=== PATIENT | male | born 1950 | race Two or more races ===

== ENCOUNTER 2024-03-18 09:35 | Outpatient (AMB) | payer OTHER, MEDICAID, SELFPAY ==
[2024-03-18 10:18] VITALS: BP 178/85; PULSE 60; RESP 18; TEMP 36.2; O2SAT 97; BMI 25.1
--- NOTE | 2024-03-18 10:18 | PD.ORTHCLVIS ---
Vital signs 03/18/24 10:18 Height 1.7 m Height Method Stated Weight 72.83 kg Weight Measurement Method Standing Scale BMI 25.1 BP 178/85 H Blood Pressure Source Automatic Cuff Blood Pressure Location Right Upper Arm Position Sitting Respiration 18 Pulse 60 Pulse Source Monitor Temp 97.2 F Temp Source Temporal Artery Scan Pulse Oximetry (%) 97 Oxygen Delivery Method Room Air Med/Allergies Allergies & Medications Allergies NKA* Allergy (Uncoded 03/18/24 10:19) Medication Reconciliation Amlodipine Besylate 5 mg PO QDAY ##90 07/12/16 [History Confirmed 03/18/24] Diclofenac Sodium 100 mg PO QDAY ##90 07/12/16 [History Confirmed 03/18/24] Metformin Hcl 1,000 mg PO BID ##180 07/12/16 [History Confirmed 03/18/24] docusate sodium 100 mg capsule 100 mg PO BID ##60 07/12/16 [History Confirmed 03/18/24] hydrochlorothiazide 25 mg tablet 25 mg PO QDAY ##90 07/12/16 [History Confirmed 03/18/24] linagliptin 5 mg tablet (Tradjenta) 5 mg PO QDAY ##90 07/12/16 [History Confirmed 03/18/24] lisinopril 40 mg tablet 40 mg PO QDAY ##90 07/12/16 [History Confirmed 03/18/24] lovastatin 10 mg tablet 10 mg PO QDAY ##90 07/12/16 [History Confirmed 03/18/24] sitagliptin phosphate 100 mg tablet (Januvia) 1 tab PO QDAY ##30 02/19/17 [History Confirmed 03/18/24] Subjective Visit Visit for: new patient and knee (LEFT) Immunization / Flu Flu Vaccine in the Last 12 Months: Yes Flu Vaccine Exclusion Criteria: Already Received History of Present Illness Chief complaint: LEFT KNEE PAIN Con is a pleasant 73-year-old male with a longstanding history of left knee pain. Is been ongoing for more than 1 year. He has tried braces. He has not had any anti-inflammatories or injections. He has tried tramadol. The pain has significantly worsened in the last 2 months. Pain Pain level (0-10): 6 Pain duration: ON AND OFF Pain location: inside (medial) Pain quality: sharp, dull and aching Pain timing: night Associated signs & symptoms: weakness and stiffness Ambulatory data Ambulatory device: none Treatments Improvement with previous injections: No Improvement with PT: No Improvement with NSAIDS: no Review of Systems Review of Systems: All systems negative unless otherwise noted in HPI. Exam Exam Patient is in no acute distress and is cooperative with the examination today. Breathing is nonlabored. In no respiratory distress. Bilateral extremities were evaluated and demonstrates sensation intact to light touch. Palpable pedal pulses are present. No significant edema is present. Bilateral hips were examined. The patient has no pain with log roll of the hips. Internal rotation to 30 degrees and external rotation to 30 degrees is painless. Negative FADIR. The left knee was examined. The left knee is in [varus] alignment. Range of motion from [0-115] degrees. Knee is stable to varus and valgus as well as AP translation with <5mm. Patient has a [negative] McMurrays. There is [no] pain with patellofemoral compression and [no] crepitus noted. The knee is [tender] to palpation [medially]. The right knee was also examined. The right knee is in [varus] alignment. Range of motion from [0-120] degrees. Knee is stable to varus and valgus as well as AP translation with <5mm. Patient has a [negative] McMurrays. There is [no] pain with patellofemoral compression and [no] crepitus noted. The knee is [tender] to palpation [medially]. I reviewed left knee x-rays from [facility] imaging. These are nonweightbearing. This demonstrates significant joint space loss in the medial compartment. There is osteophytes and varus deformity. Assessment and Plan Problem List (1) Arthritis of left knee: Status: Acute Plan: Patient is a pleasant 73-year-old male with left knee pain and left knee arthritis. We discussed nonoperative and operative options. We would like to get weightbearing x-rays to better assess his knee. He can see us back in approximately 1 to 2 weeks to go over the results and after we get authorization for injections. We will likely do injections at the next visit Advanced Care Planning Discussion Advance care planning discussed with:: patient Office Procedures GNS Level of Care Nursing/Assessment Patient Status: Initial/New Patient Nursing Assessment/Reassesment: Medication Reconciliation, Update PMH in EMR and Vital Signs Coordination of Care: Complex Care and Chronic Disease 1-5, Education Complex Pt/Fam, Consent,records obtained, informed consent and Staff clarify orders Special Needs: Language special needs New Patient Charge New Patient Point Assignment: 1089 New Patient Point Charge: ACCOUNTING CLERK Level 3 ([id number]) Past Medical History Past Medical History Have you ever been diagnosed with any of the following: Cardiology Problems Hypercholesterolemia: Yes Hypertension: Yes Respiratory Problems Smoking: No Smoking Exposure: No Endocrine Problems Diabetes Mellitus Type 1: Yes
== END 2024-03-18 10:47 | disposition home or self-care (01) ==
PROVIDERS: PCP Family Medicine; Referring Provider Family Medicine; Supervising Provider Orthopaedic Surgery Adult Reconstructive Orthopaedic Surgery; Visit Provider Orthopaedic Surgery Adult Reconstructive Orthopaedic Surgery
DX: M17.12 Unilateral primary osteoarthritis, left knee (principal); M25.562 Pain in left knee; I10 Essential (primary) hypertension; E78.00 Pure hypercholesterolemia, unspecified
CPT/HCPCS: 99203; G0463

== ENCOUNTER 2024-03-27 10:35 | Outpatient (AMB) | payer OTHER, MEDICAID, SELFPAY ==
[2024-03-27 10:48] VITALS: BP 161/83; PULSE 70; RESP 18; TEMP 36.4; O2SAT 97; BMI 25.1
--- NOTE | 2024-03-27 10:48 | PD.ORTHCLVIS ---
Vital signs 03/27/24 10:48 Height 1.7 m Height Method Stated Weight 72.603 kg Weight Measurement Method Standing Scale BMI 25.1 BP 161/83 H Blood Pressure Source Automatic Cuff Blood Pressure Location Right Upper Arm Position Sitting Respiration 18 Pulse 70 Pulse Source Monitor Temp 97.6 F Temp Source Temporal Artery Scan Pulse Oximetry (%) 97 Oxygen Delivery Method Room Air Med/Allergies Allergies & Medications Allergies NKA* Allergy (Uncoded 03/27/24 10:49) Medication Reconciliation Amlodipine Besylate 5 mg PO QDAY ##90 07/12/16 [History Confirmed 03/27/24] Diclofenac Sodium 100 mg PO QDAY ##90 07/12/16 [History Confirmed 03/27/24] Metformin Hcl 1,000 mg PO BID ##180 07/12/16 [History Confirmed 03/27/24] docusate sodium 100 mg capsule 100 mg PO BID ##60 07/12/16 [History Confirmed 03/27/24] hydrochlorothiazide 25 mg tablet 25 mg PO QDAY ##90 07/12/16 [History Confirmed 03/27/24] linagliptin 5 mg tablet (Tradjenta) 5 mg PO QDAY ##90 07/12/16 [History Confirmed 03/27/24] lisinopril 40 mg tablet 40 mg PO QDAY ##90 07/12/16 [History Confirmed 03/27/24] lovastatin 10 mg tablet 10 mg PO QDAY ##90 07/12/16 [History Confirmed 03/27/24] sitagliptin phosphate 100 mg tablet (Januvia) 1 tab PO QDAY ##30 02/19/17 [History Confirmed 03/27/24] meloxicam 7.5 mg tablet 7.5 mg PO QDAY #45 tabs 03/27/24 [Rx] Subjective Visit Visit for: follow up visit and knee Immunization / Flu Flu Vaccine in the Last 12 Months: Yes Flu Vaccine Exclusion Criteria: Already Received History of Present Illness Chief complaint: Left knee pain Con is a pleasant 73-year-old male with a longstanding history of left knee pain. Is been ongoing for more than 1 year. He has tried braces. He has not had any anti-inflammatories or injections. He has tried tramadol. The pain has significantly worsened in the last 2 months. Pain Pain level (0-10): 6 Pain duration: ON AND OFF Pain location: inside (medial) Pain quality: sharp, dull and aching Pain timing: night and increases with activity Associated signs & symptoms: weakness and stiffness Ambulatory data Ambulatory device: none Treatments Improvement with previous injections: No Improvement with PT: No Improvement with NSAIDS: no Review of Systems Review of Systems: All systems negative unless otherwise noted in HPI. Exam Exam Patient is in no acute distress and is cooperative with the examination today. Breathing is nonlabored. In no respiratory distress. Bilateral extremities were evaluated and demonstrates sensation intact to light touch. Palpable pedal pulses are present. No significant edema is present. Bilateral hips were examined. The patient has no pain with log roll of the hips. Internal rotation to 30 degrees and external rotation to 30 degrees is painless. Negative FADIR. The left knee was examined. The left knee is in [varus] alignment. Range of motion from [0-115] degrees. Knee is stable to varus and valgus as well as AP translation with <5mm. Patient has a [negative] McMurrays. There is [no] pain with patellofemoral compression and [no] crepitus noted. The knee is [tender] to palpation [medially]. The right knee was also examined. The right knee is in [varus] alignment. Range of motion from [0-120] degrees. Knee is stable to varus and valgus as well as AP translation with <5mm. Patient has a [negative] McMurrays. There is [no] pain with patellofemoral compression and [no] crepitus noted. The knee is [tender] to palpation [medially]. I reviewed left knee x-rays from [facility] imaging. X-rays demonstrate significant left knee arthritis with complete obliteration of the medial joint space. Osteophytes are present. Assessment and Plan Problem List (1) Arthritis of left knee: Status: Acute Plan: Patient is a pleasant 73-year-old male with left knee pain and left knee arthritis. We discussed nonoperative and operative options. WWe will try injections and anti-inflammatories. He does have significant arthritis and we will see how long this works. We discussed operative treatment should he not get good relief. Advanced Care Planning Discussion Advance care planning discussed with:: patient Office Procedures GNS Level of Care Nursing/Assessment Patient Status: Established Patient Nursing Assessment/Reassesment: Medication Reconciliation, Update PMH in EMR and Vital Signs Coordination of Care: Complex Care and Chronic Disease 1-5, Education Complex Pt/Fam, Consent,records obtained, informed consent, Results/Orders obtained and Staff clarify orders Special Needs: Language special needs Established Patient Charge Established Patient Point Assignment: 95 Established Patient Point Charge: EP Level 3 (80-115) Surgical Proc/IM SQ injection Major Surgical Procedure: Yes (LEFT KNEE INJECTION) Medication Given Medication Given Medication Given: Yes Documented Dose Given: 4 Route: Infiitration Medication Given Medication Given Medication Given: Yes Documented Dose Given: 1 Route: Infiitration Office Meds Xylocaine 10 mg/mL (1 %) injection solution Performing Provider: Yusuf Quintana MD Performing Location: [facility] Administered by: Yusuf Quintana MD on 03/27/24 11:05 Dose Route Admin Location Dispensed Lot Number Expiration Date [facility] Home Extension Agent 20 mL Infiltration 20 mL [id number] 01/24/27 51148-682-90 [facility] triamcinolone acetonide 40 mg/mL suspension for injection Performing Provider: Yusuf Quintana MD Performing Location: [facility] Administered by: Yusuf Quintana MD on 03/27/24 11:05 Dose Route Admin Location Dispensed Lot Number Expiration Date [facility] Home Extension Agent 40 mg Infiltration 1 mL [id number] 12/24/25 [address]-8 [employer] Past Medical History Past Medical History Have you ever been diagnosed with any of the following: Cardiology Problems Hypercholesterolemia: Yes Hypertension: Yes Respiratory Problems Smoking: No Smoking Exposure: No Endocrine Problems Diabetes Mellitus Type 1: Yes
== END 2024-03-27 11:01 | disposition home or self-care (01) ==
LOC: HODSRG 10:35
PROVIDERS: PCP Family Medicine; Referring Provider Family Medicine; Supervising Provider Orthopaedic Surgery Adult Reconstructive Orthopaedic Surgery; Visit Provider Orthopaedic Surgery Adult Reconstructive Orthopaedic Surgery
DX: M17.12 Unilateral primary osteoarthritis, left knee (principal); E78.00 Pure hypercholesterolemia, unspecified; I10 Essential (primary) hypertension; M25.562 Pain in left knee
CPT/HCPCS: 20610; 99213; J3301; J3490; G0463

== ENCOUNTER 2024-07-01 09:35 | Outpatient (AMB) | payer OTHER, MEDICAID, SELFPAY ==
[2024-07-01 11:03] VITALS: BP 157/75; PULSE 68; RESP 18; TEMP 35.8; O2SAT 97; BMI 25.2
--- NOTE | 2024-07-01 11:03 | ORTHONT_ITS ---
Vital signs 07/01/24 11:03 Height 1.7 m Height Method Stated Weight 73.057 kg Weight Measurement Method Standing Scale BMI 25.2 BP 157/75 H Blood Pressure Source Automatic Cuff Blood Pressure Location Left Upper Arm Position Sitting Respiration 18 Pulse 68 Pulse Source Monitor Temp 96.5 F L Temp Source Temporal Artery Scan Pulse Oximetry (%) 97 Oxygen Delivery Method Room Air Med/Allergies Allergies & Medications Allergies NKA* Allergy (Uncoded 07/01/24 11:04) Medication Reconciliation Amlodipine Besylate 5 mg PO QDAY ##90 07/12/16 [History Confirmed 07/01/24] Diclofenac Sodium 100 mg PO QDAY ##90 07/12/16 [History Confirmed 07/01/24] Metformin Hcl 1,000 mg PO BID ##180 07/12/16 [History Confirmed 07/01/24] docusate sodium 100 mg capsule 100 mg PO BID ##60 07/12/16 [History Confirmed 07/01/24] hydrochlorothiazide 25 mg tablet 25 mg PO QDAY ##90 07/12/16 [History Confirmed 07/01/24] linagliptin 5 mg tablet (Tradjenta) 5 mg PO QDAY ##90 07/12/16 [History Confirmed 07/01/24] lisinopril 40 mg tablet 40 mg PO QDAY ##90 07/12/16 [History Confirmed 07/01/24] lovastatin 10 mg tablet 10 mg PO QDAY ##90 07/12/16 [History Confirmed 07/01/24] sitagliptin phosphate 100 mg tablet (Januvia) 1 tab PO QDAY ##30 02/19/17 [History Confirmed 07/01/24] meloxicam 7.5 mg tablet 7.5 mg PO QDAY #45 tabs 03/27/24 [Rx Confirmed 07/01/24] Exam Exam Patient is in no acute distress and is cooperative with the examination today. Breathing is nonlabored. In no respiratory distress. Bilateral extremities were evaluated and demonstrates sensation intact to light touch. Palpable pedal pulses are present. No significant edema is present. Bilateral hips were examined. The patient has no pain with log roll of the hips. Internal rotation to 30 degrees and external rotation to 30 degrees is painless. Negative FADIR. The left knee was examined. The left knee is in [varus] alignment. Range of motion from [0-115] degrees. Knee is stable to varus and valgus as well as AP translation with <5mm. Patient has a [negative] McMurrays. There is [no] pain with patellofemoral compression and [no] crepitus noted. The knee is [tender] to palpation [medially]. The right knee was also examined. The right knee is in [varus] alignment. Range of motion from [0-120] degrees. Knee is stable to varus and valgus as well as AP translation with <5mm. Patient has a [negative] McMurrays. There is [no] pain with patellofemoral compression and [no] crepitus noted. The knee is [tender] to palpation [medially]. I reviewed left knee x-rays from [facility] imaging. X-rays demonstrate significant left knee arthritis with complete obliteration of the medial joint space. Osteophytes are present. Assessment and Plan Problem List (1) Arthritis of left knee: Status: Acute Plan: Patient is a pleasant 73-year-old male with left knee pain and left knee arthritis. He is doing well with conservative treatment. He has minimal pain. We offered physical therapy and he declined it today as he is doing well. Advanced Care Planning Discussion Advance care planning discussed with:: patient Office Procedures GNS Level of Care Nursing/Assessment Patient Status: Established Patient Nursing Assessment/Reassesment: Medication Reconciliation, Update PMH in EMR and Vital Signs Coordination of Care: Complex Care and Chronic Disease 1-5, Education Complex Pt/Fam, Consent,records obtained, informed consent, Results/Orders obtained and Staff clarify orders Established Patient Charge Established Patient Point Assignment: 95 Established Patient Point Charge: EP Level 3 (80-115) MA Intake Visit Data Collection New Patient or Established: Established Patient (seen at [facility] within 3 years) Reason for Visit:: 3 MONTH F/U LEFT KNEE INJECTION Seen by Clinical Staff ONLY (RN/MA): No Director Of Integrated Marketing Required: Yes PCP or OBGYN visit in last 3 months: Yes Hx Now: No Do You Feel Safe at Home: Yes Authorities Contacted: N/A Questionairres Past Medical History Past Medical History Have you ever been diagnosed with any of the following: Cardiology Problems Hypercholesterolemia: Yes Hypertension: Yes Respiratory Problems Smoking: No Smoking Exposure: No Endocrine Problems Diabetes Mellitus Type 1: Yes Subjective Visit Visit for: follow up visit and knee Immunization / Flu Flu Vaccine in the Last 12 Months: No Flu Vaccine Exclusion Criteria: No Exclusion Criteria History of Present Illness Chief complaint: left knee pain Con is a pleasant 73-year-old male with a longstanding history of left knee pain. This has been ongoing for more than 1 year. He has tried braces. He has not had any anti-inflammatories or injections. He has tried tramadol. The pain has significantly worsened in the last 2 months. Pain Pain level (0-10): 0 Pain duration: WITH CERTAIN MOVEMENTS Associated signs & symptoms: none Ambulatory data Ambulatory device: none Treatments Improvement with previous injections: No Improvement with PT: No Improvement with NSAIDS: no Review of Systems Review of Systems: All systems negative unless otherwise noted in HPI.
== END 2024-07-01 11:21 | disposition home or self-care (01) ==
LOC: HODSRG 09:35
PROVIDERS: PCP Family Medicine; Referring Provider Family Medicine; Supervising Provider Orthopaedic Surgery Adult Reconstructive Orthopaedic Surgery; Visit Provider Orthopaedic Surgery Adult Reconstructive Orthopaedic Surgery
DX: M17.12 Unilateral primary osteoarthritis, left knee (principal); M25.562 Pain in left knee; I10 Essential (primary) hypertension; E78.00 Pure hypercholesterolemia, unspecified
CPT/HCPCS: 99213; G0463

== ENCOUNTER → 2024-11-12 | Outpatient (CLI) | payer OTHER, MEDICAID, SELFPAY ==
[2024-11-12 08:43] LABS: Basophils % (Auto) 0 % (0-2.5); Eosinophils # (Auto) 0.2 Thou/mm3 (0.0-0.5); Eosinophils % (Auto) 2 % (0-10); Hematocrit 42.4 % (41.0-53.0); Hemoglobin 14.5 g/dL (13.5-16.0); Immature Granulocytes % (Auto) 0 % (0-0); Immature Granulocytes Auto 0.01 Thou/mm3 (0.00-0.00); Lymphocytes # (Auto) 1.9 Thou/mm3 (1.0-4.8); Lymphocytes % (Auto) 27 % (10-50); Mean Corpuscular HGB Conc 34.2 g/dl (31.0-37.0); Mean Corpuscular Hemoglobin 31.1 pg (25.0-35.0); Mean Corpuscular Volume 91 fL (80-100); Monocytes # (Auto) 0.6 Thou/mm3 (0.0-0.8); Monocytes % (Auto) 8 % (0-12); Neutrophils # (Auto) 4.3 Thou/mm3 (1.8-7.7); Neutrophils % (Auto) 62 % (37-80); Nucleated Red Blood Cell % 0 /100 WBC (0); Platelet Count 185 Thou/mm3 (140-440); RDW Standard Deviation 45.7 fL (35.1-43.9); Red Blood Count 4.66 Miln/mm3 (4.50-5.90)
[2024-11-12 08:50] LABS: Glucose Estimated Average 140 mg/dL (80-131); Hemoglobin A1C 6.5 % Hgb (4.8-6.0)
[2024-11-12 09:05] LABS: Creatinine MALB Rnd Ur 50 mg/dL (30-125); Microalbumin Creat Ratio 12 mg/gCrea (<30); Microalbumin, Random Urine 6 mg/L (0-300)
[2024-11-12 09:07] LABS: Prostate Specific Antigen 1.24 ng/mL (0-4.00)
[2024-11-12 09:14] LABS: Vitamin B12 809 pg/mL (211-911)
[2024-11-12 09:28] LABS: Alanine Aminotransferase 14 U/L (10-49); Albumin, Serum 4.6 gm/dL (3.4-4.8); Alkaline Phosphatase 51 U/L (46-116); Anion Gap 8 (7-16); Aspartate Amino Transferase 20 U/L (0-34); BUN/Creatinine Ratio 19 Ratio (12-20); Blood Urea Nitrogen 15 mg/dL (9-23); Calcium 9.2 mg/dL (8.3-10.6); Calcium (Corrected) 9.2 mg/dL (8.5-10.1); Carbon Dioxide 27.3 mMol/L (20.0-31.0); Cardiac Risk Estimate 3.1 RATIO (4.0-6.7); Chloride 106 mMol/L (98-107); Cholesterol 151 mg/dL (132-200); Creatinine (Component) 0.8 mg/dL (0.6-1.3); Globulin 2.3 gm/dL (2.3-3.5); Glucose 139 mg/dL (74-106); HDL Cholesterol 48 mg/dL (40-60); LDL Cholesterol,Calculated 76 mg/dL (0-130); Osmolality,Calculated 284 (275-295); Potassium 4.1 mMol/L (3.4-5.1); Sodium 141 mMol/L (136-145); Thyroid Stimulating Hormone 4.91 uIU/mL (0.55-4.78); Total Protein 6.9 gm/dL (5.7-8.2); Triglycerides 133 mg/dL (30-150); eGFR > 60 See Note
== END | disposition home or self-care (01) ==
PROVIDERS: PCP Nurse Practitioner Family; Referring Provider Nurse Practitioner Family; Visit Provider Nurse Practitioner Family
DX: Z13.29 Encounter for screening for other suspected endocrine disorder (principal); E11.9 Type 2 diabetes mellitus without complications; E78.5 Hyperlipidemia, unspecified; I10 Essential (primary) hypertension; N40.1 Benign prostatic hyperplasia with lower urinary tract symptoms
CPT/HCPCS: 36415; 80053; 80061; 82043; 82570; 82607; 83036; 84153; 84439; 84443; 85025

== ENCOUNTER 2024-12-05 08:53 | Outpatient (AMB) | payer OTHER, MEDICAID, SELFPAY ==
--- NOTE | 2024-12-05 09:19 | PD.ORTHCLVIS ---
Vital signs 12/05/24 09:25 Height 1.7 m Height Method Stated Weight 72.773 kg Weight Measurement Method Standing Scale BMI 25.2 BP 126/65 Blood Pressure Source Automatic Cuff Blood Pressure Location Left Upper Arm Position Sitting Respiration 16 Pulse 60 Pulse Source Monitor Temp 97.1 F Temp Source Temporal Artery Scan Pulse Oximetry (%) 95 Oxygen Delivery Method Room Air Med/Allergies Allergies & Medications Allergies NKA* Allergy (Uncoded 12/05/24 09:38) Medication Reconciliation Amlodipine Besylate 5 mg PO QDAY ##90 07/12/16 [History Confirmed 12/05/24] Diclofenac Sodium 100 mg PO QDAY ##90 07/12/16 [History Confirmed 12/05/24] Metformin Hcl 1,000 mg PO BID ##180 07/12/16 [History Confirmed 12/05/24] docusate sodium 100 mg capsule 100 mg PO BID ##60 07/12/16 [History Confirmed 12/05/24] hydrochlorothiazide 25 mg tablet 25 mg PO QDAY ##90 07/12/16 [History Confirmed 12/05/24] linagliptin 5 mg tablet (Tradjenta) 5 mg PO QDAY ##90 07/12/16 [History Confirmed 12/05/24] lisinopril 40 mg tablet 40 mg PO QDAY ##90 07/12/16 [History Confirmed 12/05/24] lovastatin 10 mg tablet 10 mg PO QDAY ##90 07/12/16 [History Confirmed 12/05/24] sitagliptin phosphate 100 mg tablet (Januvia) 1 tab PO QDAY ##30 02/19/17 [History Confirmed 12/05/24] meloxicam 7.5 mg tablet 7.5 mg PO QDAY #45 tabs 03/27/24 [Rx Confirmed 12/05/24] Exam Exam Patient is in no acute distress and is cooperative with the examination today. Breathing is nonlabored. In no respiratory distress. Bilateral extremities were evaluated and demonstrates sensation intact to light touch. Palpable pedal pulses are present. No significant edema is present. Bilateral hips were examined. The patient has no pain with log roll of the hips. Internal rotation to 30 degrees and external rotation to 30 degrees is painless. Negative FADIR. The left knee was examined. The left knee is in [varus] alignment. Range of motion from [0-115] degrees. Knee is stable to varus and valgus as well as AP translation with <5mm. Patient has a [negative] McMurrays. There is [no] pain with patellofemoral compression and [no] crepitus noted. The knee is [tender] to palpation [medially]. The right knee was also examined. The right knee is in [varus] alignment. Range of motion from [0-120] degrees. Knee is stable to varus and valgus as well as AP translation with <5mm. Patient has a [negative] McMurrays. There is [no] pain with patellofemoral compression and [no] crepitus noted. The knee is [tender] to palpation [medially]. I reviewed left knee x-rays from [facility] imaging. X-rays demonstrate significant left knee arthritis with complete obliteration of the medial joint space. Osteophytes are present. Assessment and Plan Problem List (1) Arthritis of left knee: Status: Acute Plan: Patient is a pleasant 73-year-old male with left knee pain and left knee arthritis. He would like another knee injection today. The last injection was 3 months. He does not want surgery at this time as his is about to get a knee replacement Recommend knee cortisone injection as patient would like to proceed with conservative treatment at this time. The risks and benefits of the procedure were reviewed with the patient and patient gave verbal consent to continue with the procedure. Procedure: performed by Dr. Quintana Using sterile technique the left knee was thoroughly prepped with alcohol, and approximately 1 cc of Kenalog 40 mg/mL and 4 cc of 1% lidocaine was injected without resistance into the medial tibial femoral joint space. The patient tolerated the procedure. Advanced Care Planning Discussion Advance care planning discussed with:: patient Office Procedures GNS Level of Care Nursing/Assessment Patient Status: Established Patient Nursing Assessment/Reassesment: Medication Reconciliation, Update PMH in EMR and Vital Signs Coordination of Care: Complex Care and Chronic Disease 1-5, Education Complex Pt/Fam, Consent,records obtained, informed consent and Staff clarify orders Special Needs: Language special needs Established Patient Charge Established Patient Point Assignment: 90 Established Patient Point Charge: EP Level 3 (80-115) Medication Given Medication Given Medication Given: Yes Documented Dose Given: 1 Route: Infiitration Medication Given Medication Given Medication Given: Yes Documented Dose Given: 1 Route: Infiitration Office Meds Xylocaine 10 mg/mL (1 %) injection solution Performing Provider: Yusuf Quintana MD Performing Location: [facility] Administered by: Yusuf Quintana MD on 12/05/24 09:30 Dose Route Admin Location Dispensed Lot Number Expiration Date [facility] Auger Operator 40 mL Infiltration KNEE 40 mL [id number] 02/25/28 34410-739-77 [facility] triamcinolone acetonide 40 mg/mL suspension for injection Performing Provider: Yusuf Quintana MD Performing Location: [facility] Administered by: Yusuf Quintana MD on 12/05/24 09:30 Dose Route Admin Location Dispensed Lot Number Expiration Date [facility] Auger Operator 80 mg intra-articular KNEE 2 mL [id number] 06/27/26 27829-154-70 MARLINE THAKKAR MA Intake Visit Data Collection New Patient or Established: Established Patient (seen at [facility] within 3 years) Reason for Visit:: LEFT KNEE INJECTION Seen by Clinical Staff ONLY (RN/MA): No Director Of Acquisitions Required: Yes PCP or OBGYN visit in last 3 months: Yes Hx Now: No Do You Feel Safe at Home: Yes Authorities Contacted: N/A Questionairres Past Medical History Past Medical History Have you ever been diagnosed with any of the following: Neurological Problems Cerebrovascular Accident (CVA): No Transient Ischemic Attacks (TIA): No Dementia: No Alzheimer's Disease: No Parkinson's Disease: No Brain Tumor: No Meningitis: No Seizures: No Epilepsy: No Multiple Sclerosis: No Cerebral Palsy: No Amyotrophic Lateral Sclerosis (ALS/María Elena Gehrig's): No Guillain-[place] Syndrome: No Spina Bifida: No Paralysis: No Peripheral Neuropathy: No Wilson's Palsy: No Subdural Hematoma: No Migraine: No Head Trauma: No Spinal Cord Injury: No Traumatic Brain Injury: No Cardiology Problems Myocardial Infarction: No Cardiac Arrhythmia: No Atrial Fibrillation: No Angina: No Heart Murmur: No Coronary Artery Disease: No Atherosclerotic Heart Disease: No Peripheral Vascular Disease: No Hypercholesterolemia: Yes Aneurysm: No Congestive Heart Failure: No Congenital Heart Disease: No Valvular Heart Disease: No Rheumatic Fever: No Cardiomyopathy: No Edema: No Pericarditis: No Cellulitis: No Deep Vein Thrombosis: No Hypertension: Yes Hypotension: No Varicose Veins: No Respiratory Problems Chronic Obstructive Pulmonary Disease (COPD): No Asthma: No Bronchitis: No Emphysema: No Pneumonia: No Pulmonary Fibrosis: No Tuberculosis: No Pulmonary Embolism: No Pulmonary Edema: No Sleep Apnea: No CPAP Dependent: No Respiratory Aspiration: No Dyspnea: No Orthopnea: No Hx Cough: No Cough: No Wheezing: No Chest Deformities: No Smoking: No Smoking Cessation Counseling: No Smoking Exposure: No Tobacco Use: No Clubbing: No Exposure to Respiratory Irritants: No Intubation: No Stomache/Intestinal Problems Liver Cancer: No Hepatitis: No Cirrhosis: No Pancreatic Cancer: No Pancreatitis: No Celiac Disease: No Gall Bladder Disease: No Gastrointestinal Bleed: No Esophageal Varices: No Barrientos's Esophagus: No Colitis: No Ulcerative Colitis: No Diverticulitis: No Diverticulosis: No Ulcer: No Colorectal Cancer: No Irritable Bowel: No Crohn's Disease: No Obstructive Bowel: No Hiatal Hernia: No Hemorrhoids: No Gastroesophageal Reflux Disease: No Polyps: No Obesity: No Genital/Urinary Problems Chronic Kidney Disease: No Renal Disease: No Kidney Stones: No Polycystic Kidney Disease: No Neurogenic Bladder: No Inguinal Hernia: No Dialysis: No Prostate Cancer: No Benign Prostatic Hyperplasia: No Reproductive Problems Breast Cancer: No Fibroids: No Genital Herpes: No Gonorrhea: No Syphilis: No Testicular Cancer: No Musculoskeletal Problems Muscular Dystrophy: No Myasthenia Gravis: No Marfan's Syndrome: No Bone Cancer: No Arthritis: No Rheumatoid Arthritis: No Osteoporosis: No Degenerative Disk Disease: No Gout: No Scoliosis: No Carpal Tunnel Syndrome: No Fibromyalgia: No Fractures: No Degenerative Joint Disease: No Osteomyelitis: No Poliovirus: No Head,Eye,Nose,Throat Problems Cataracts: No Glaucoma: No Blind: No Retinal Detachment: No Macular Degeneration: No Chronic Ear Infections: No Deafness: No Eye Prosthesis: No Endocrine Problems Diabetes Mellitus Type 1: Yes Diabetes Mellitus Type 2: No Hypoglycemia: No Shante's Syndrome: No Shoshone's Disease: No Hyperthyroidism: No Hypothyroidism: No Thyroid Cancer: No Parathyroid Disease: No Pituitary Disease: No Systemic Lupus Erythematosus: No Syndrome of Inappropriate Antidiuretic Hormone: No Adrenal Disease: No Graves' Disease: No Blood Problems Anemia: No Leukemia: No Hemophilia: No Thalassemia: No Sickle Cell Disease: No Clotting Problems: No Psychologic Problems Schizophrenia: No Recreational Drug Use: No Bipolar Disorder: No Depression: No Anxiety: No Behavior Problems: No Self-Mutilation: No Attention Deficit Disorder: No Attention Deficit Hyperactivity Disorder: No Depression: No Post Traumatic Stress Disorder: No Eating Disorder: No Other Problems Hospitalization: No Autoimmune Disease: No Down Syndrome: No Autism: No Developmental Delay: No Cosmetic Surgery: No Shingles: No Falls: No Blood Transfusions: No Blood Transfusion Reaction: No Anesthesia Reactions: No Organ Transplant: No Chemotherapy: No Radiation Therapy: No Hyperbaric Therapy: No MRSA: No VRSA: No Vancomycin-Resistant Enterococci: No Human Immunodeficiency Virus (HIV): No Chicken Pox: No Measles: No Mumps: No Rubella ([place] Measles): No Pertussis: No Klebsiella Pneumoniae Carbapenemase Producing Bacteria: No Clostridium Difficile: No Hepatitis A: No Hepatitis B: No Hepatitis C: No Communicable Disease: No Cancer: No Lung Cancer: No Surgical History Angioplasty: No Appendectomy: No Bariatric Surgery: No Breast Surgery: No Cancer Surgery: No Carotid Endarterectomy: No Cholecystectomy: No Colectomy: No Colostomy: No Coronary Artery Bypass Graft: No Valve Replacement: No Herniorrhaphy: No Total Hip Replacement: No Total Knee Replacement: No Pacemaker: No Sinus Surgery: No Splenectomy: No Thyroidectomy: No Ureter Stent: No Subjective Visit Visit for: follow up visit and knee Immunization / Flu Flu Vaccine in the Last 12 Months: No Flu Vaccine Exclusion Criteria: No Exclusion Criteria History of Present Illness Chief complaint: left knee pain Con is a pleasant 73-year-old male with a longstanding history of left knee pain. This has been ongoing for more than 1 year. He has tried braces. He has not had any anti-inflammatories or injections. He has tried tramadol. The pain has significantly worsened in the last 2 months. The last injection worked for longer than 3 months and he would like another one today Pain Pain level (0-10): 0 Pain duration: WITH CERTAIN MOVEMENTS Pain location: inside (medial) Associated signs & symptoms: weakness Ambulatory data Ambulatory device: none Treatments Improvement with previous injections: No Improvement with PT: No Improvement with NSAIDS: no Review of Systems Review of Systems: All systems negative unless otherwise noted in HPI.
[2024-12-05 09:25] VITALS: BP 126/65; PULSE 60; RESP 16; TEMP 36.2; O2SAT 95; BMI 25.2
== END 2024-12-05 09:42 | disposition home or self-care (01) ==
PROVIDERS: PCP Nurse Practitioner Family; Referring Provider Nurse Practitioner Family; Supervising Provider Orthopaedic Surgery Adult Reconstructive Orthopaedic Surgery; Visit Provider Orthopaedic Surgery Adult Reconstructive Orthopaedic Surgery
DX: M17.12 Unilateral primary osteoarthritis, left knee (principal); M25.562 Pain in left knee; I10 Essential (primary) hypertension; E78.00 Pure hypercholesterolemia, unspecified; E10.9 Type 1 diabetes mellitus without complications
CPT/HCPCS: 20610; 99213; J3301; J3490; G0463

== ENCOUNTER 2025-02-26 07:53 | Outpatient (AMB) | payer OTHER, MEDICAID, SELFPAY ==
--- NOTE | 2025-02-26 08:00 | ORTHONT_ITS ---
Vital signs 02/26/25 08:06 Height 1.7 m Height Method Measured Weight 71.441 kg Weight Measurement Method Standing Scale BMI 24.7 BP 154/79 H Blood Pressure Source Automatic Cuff Blood Pressure Location Left Upper Arm Position Sitting Respiration 18 Pulse 70 Pulse Source Monitor Temp 97.7 F Temp Source Temporal Artery Scan Pulse Oximetry (%) 96 Oxygen Delivery Method Room Air Med/Allergies Allergies & Medications Allergies NKA* Allergy (Uncoded 02/26/25 08:08) Medication Reconciliation Amlodipine Besylate 5 mg PO QDAY ##90 07/12/16 [History Confirmed 02/26/25] Diclofenac Sodium 100 mg PO QDAY ##90 07/12/16 [History Confirmed 02/26/25] Metformin Hcl 1,000 mg PO BID ##180 07/12/16 [History Confirmed 02/26/25] docusate sodium 100 mg capsule 100 mg PO BID ##60 07/12/16 [History Confirmed 02/26/25] hydrochlorothiazide 25 mg tablet 25 mg PO QDAY ##90 07/12/16 [History Confirmed 02/26/25] linagliptin 5 mg tablet (Tradjenta) 5 mg PO QDAY ##90 07/12/16 [History Confirmed 02/26/25] lisinopril 40 mg tablet 40 mg PO QDAY ##90 07/12/16 [History Confirmed 02/26/25] lovastatin 10 mg tablet 10 mg PO QDAY ##90 07/12/16 [History Confirmed 02/26/25] sitagliptin phosphate 100 mg tablet (Januvia) 1 tab PO QDAY ##30 02/19/17 [History Confirmed 02/26/25] meloxicam 7.5 mg tablet 7.5 mg PO QDAY #45 tabs 03/27/24 [Rx Confirmed 02/26/25] Exam Exam Patient is in no acute distress and is cooperative with the examination today. Breathing is nonlabored. In no respiratory distress. Bilateral extremities were evaluated and demonstrates sensation intact to light touch. Palpable pedal pulses are present. No significant edema is present. Bilateral hips were examined. The patient has no pain with log roll of the hips. Internal rotation to 30 degrees and external rotation to 30 degrees is painless. Negative FADIR. The left knee was examined. The left knee is in [varus] alignment. Range of motion from [0-115] degrees. Knee is stable to varus and valgus as well as AP translation with <5mm. Patient has a [negative] McMurrays. There is [no] pain with patellofemoral compression and [no] crepitus noted. The knee is [tender] to palpation [medially]. The right knee was also examined. The right knee is in [varus] alignment. Range of motion from [0-120] degrees. Knee is stable to varus and valgus as well as AP translation with <5mm. Patient has a [negative] McMurrays. There is [no] pain with patellofemoral compression and [no] crepitus noted. The knee is [tender] to palpation [medially]. I reviewed left knee x-rays from [facility] imaging. X-rays demonstrate significant left knee arthritis with complete obliteration of the medial joint space. Osteophytes are present. Assessment and Plan Problem List (1) Arthritis of left knee: Status: Acute Plan: Patient is a pleasant 73-year-old male with left knee pain and left knee arthritis. He would like another knee injection today. The last injection was 3 months. He does not want surgery at this time as his is about to get a knee replacement Recommend knee cortisone injection as patient would like to proceed with conservative treatment at this time. The risks and benefits of the procedure were reviewed with the patient and patient gave verbal consent to continue with the procedure. Procedure: performed by Dr. Quintana Using sterile technique the left knee was thoroughly prepped with alcohol, and approximately 1 cc of Kenalog 40 mg/mL and 4 cc of 1% lidocaine was injected without resistance into the medial tibial femoral joint space. The patient tolerated the procedure. Advanced Care Planning Discussion Advance care planning discussed with:: patient Office Procedures GNS Level of Care Nursing/Assessment Patient Status: Established Patient Nursing Assessment/Reassesment: Medication Reconciliation, Update PMH in EMR and Vital Signs Coordination of Care: Complex Care and Chronic Disease 1-5, Education Complex Pt/Fam, Consent,records obtained, informed consent, Results/Orders obtained and Staff clarify orders Special Needs: Language special needs Established Patient Charge Established Patient Point Assignment: 95 Established Patient Point Charge: EP Level 3 (80-115) Surgical Proc/IM SQ injection Minor Surgical Procedure: Yes (KNEE INJECTION ) Medication Given Medication Given Medication Given: Yes Documented Dose Given: 1 Route: Infiitration Medication Given Medication Given Medication Given: Yes Documented Dose Given: 4 Route: Infiitration Medication Given Medication Given Medication Given: No Documented Dose Given: 0 Office Meds methylprednisolone acetate 80 mg/mL suspension for injection Performing Provider: Yusuf Quintana MD Performing Location: [facility] Administered by: Yusuf Quintana MD on 02/26/25 09:44 Dose Route Admin Location Dispensed Lot Number Expiration Date Pack age [facility] Field Trainer 80 mg intra-articular KNEE 1 mL [id number] 11/24/26 [address]-6 7 [id number] [employer] ropivacaine (PF) 2 mg/mL (0.2 %) injection solution Performing Provider: Yusuf Quintana MD [facility] Administered by: Yusuf Quintana MD on 02/26/25 09:44 Dose Route Admin Location Dispensed Lot Number Expiration Date Pack age [facility] [employer] Field Trainer 20 mL Infiltration KNEE 20 mL [id number] 06/27/27 21884-562-81 [id number] [employer] [facility] ropivacaine (PF) 2 mg/mL (0.2 %) injection solution Performing Provider: Yusuf Quintana MD Performing Location: [facility] Documented (not given) by: Roxanne Ritter MA on 02/26/25 09:44 Dose Route Admin Location Dispensed Lot Number Expiration Date Pack age [facility] [employer] Field Trainer 20 mL Infiltration mL MA Intake Visit Data Collection New Patient or Established: Established Patient (seen at [facility] within 3 years) Reason for Visit:: LEFT KNEE INJECTION Seen by Clinical Staff ONLY (RN/MA): No Building Specialist Required: Yes PCP or OBGYN visit in last 3 months: Yes Hx Now: No Do You Feel Safe at Home: Yes Authorities Contacted: N/A Questionairres Past Medical History Past Medical History Have you ever been diagnosed with any of the following: Neurological Problems Cerebrovascular Accident (CVA): No Transient Ischemic Attacks (TIA): No Dementia: No Alzheimer's Disease: No Parkinson's Disease: No Brain Tumor: No Meningitis: No Seizures: No Epilepsy: No Multiple Sclerosis: No Cerebral Palsy: No Amyotrophic Lateral Sclerosis (ALS/María Elena Gehrig's): No Guillain-[place]aven Syndrome: No Spina Bifida: No Paralysis: No Peripheral Neuropathy: No Wilson's Palsy: No Subdural Hematoma: No Migraine: No Head Trauma: No Spinal Cord Injury: No Traumatic Brain Injury: No Cardiology Problems Myocardial Infarction: No Cardiac Arrhythmia: No Atrial Fibrillation: No Angina: No Heart Murmur: No Coronary Artery Disease: No Atherosclerotic Heart Disease: No Peripheral Vascular Disease: No Hypercholesterolemia: Yes Aneurysm: No Congestive Heart Failure: No Congenital Heart Disease: No Valvular Heart Disease: No Rheumatic Fever: No Cardiomyopathy: No Edema: No Pericarditis: No Cellulitis: No Deep Vein Thrombosis: No Hypertension: Yes Hypotension: No Varicose Veins: No Respiratory Problems Chronic Obstructive Pulmonary Disease (COPD): No Asthma: No Bronchitis: No Emphysema: No Pneumonia: No Pulmonary Fibrosis: No Tuberculosis: No Pulmonary Embolism: No Pulmonary Edema: No Sleep Apnea: No CPAP Dependent: No Respiratory Aspiration: No Dyspnea: No Orthopnea: No Hx Cough: No Cough: No Wheezing: No Chest Deformities: No Smoking: No Smoking Cessation Counseling: No Smoking Exposure: No Tobacco Use: No Clubbing: No Exposure to Respiratory Irritants: No Intubation: No Stomache/Intestinal Problems Liver Cancer: No Hepatitis: No Cirrhosis: No Pancreatic Cancer: No Pancreatitis: No Celiac Disease: No Gall Bladder Disease: No Gastrointestinal Bleed: No Esophageal Varices: No Barrientos's Esophagus: No Colitis: No Ulcerative Colitis: No Diverticulitis: No Diverticulosis: No Ulcer: No Colorectal Cancer: No Irritable Bowel: No Crohn's Disease: No Obstructive Bowel: No Hiatal Hernia: No Hemorrhoids: No Gastroesophageal Reflux Disease: No Polyps: No Obesity: No Genital/Urinary Problems Chronic Kidney Disease: No Renal Disease: No Kidney Stones: No Polycystic Kidney Disease: No Neurogenic Bladder: No Inguinal Hernia: No Dialysis: No Prostate Cancer: No Benign Prostatic Hyperplasia: No Reproductive Problems Breast Cancer: No Fibroids: No Genital Herpes: No Gonorrhea: No Syphilis: No Testicular Cancer: No Musculoskeletal Problems Muscular Dystrophy: No Myasthenia Gravis: No Marfan's Syndrome: No Bone Cancer: No Arthritis: No Rheumatoid Arthritis: No Osteoporosis: No Degenerative Disk Disease: No Gout: No Scoliosis: No Carpal Tunnel Syndrome: No Fibromyalgia: No Fractures: No Degenerative Joint Disease: No Osteomyelitis: No Poliovirus: No Head,Eye,Nose,Throat Problems Cataracts: No Glaucoma: No Blind: No Retinal Detachment: No Macular Degeneration: No Chronic Ear Infections: No Deafness: No Eye Prosthesis: No Endocrine Problems Diabetes Mellitus Type 1: Yes Diabetes Mellitus Type 2: No Hypoglycemia: No Shante's Syndrome: No Manati's Disease: No Hyperthyroidism: No Hypothyroidism: No Thyroid Cancer: No Parathyroid Disease: No Pituitary Disease: No Systemic Lupus Erythematosus: No Syndrome of Inappropriate Antidiuretic Hormone: No Adrenal Disease: No Graves' Disease: No Blood Problems Anemia: No Leukemia: No Hemophilia: No Thalassemia: No Sickle Cell Disease: No Clotting Problems: No Psychologic Problems Schizophrenia: No Recreational Drug Use: No Bipolar Disorder: No Depression: No Anxiety: No Behavior Problems: No Self-Mutilation: No Attention Deficit Disorder: No Attention Deficit Hyperactivity Disorder: No Depression: No Post Traumatic Stress Disorder: No Eating Disorder: No Other Problems Hospitalization: No Autoimmune Disease: No Down Syndrome: No Autism: No Developmental Delay: No Cosmetic Surgery: No Shingles: No Falls: No Blood Transfusions: No Blood Transfusion Reaction: No Anesthesia Reactions: No Organ Transplant: No Chemotherapy: No Radiation Therapy: No Hyperbaric Therapy: No MRSA: No VRSA: No Vancomycin-Resistant Enterococci: No Human Immunodeficiency Virus (HIV): No Chicken Pox: No Measles: No Mumps: No Rubella ([place] Measles): No Pertussis: No Klebsiella Pneumoniae Carbapenemase Producing Bacteria: No Clostridium Difficile: No Hepatitis A: No Hepatitis B: No Hepatitis C: No Communicable Disease: No Cancer: No Lung Cancer: No Surgical History Angioplasty: No Appendectomy: No Bariatric Surgery: No Breast Surgery: No Cancer Surgery: No Carotid Endarterectomy: No Cholecystectomy: No Colectomy: No Colostomy: No Coronary Artery Bypass Graft: No Valve Replacement: No Herniorrhaphy: No Total Hip Replacement: No Total Knee Replacement: No Pacemaker: No Sinus Surgery: No Splenectomy: No Thyroidectomy: No Ureter Stent: No Subjective Visit Visit for: follow up visit and knee Immunization / Flu Flu Vaccine in the Last 12 Months: No Flu Vaccine Exclusion Criteria: No Exclusion Criteria History of Present Illness Chief complaint: left knee pain Con is a pleasant 73-year-old male with a longstanding history of left knee pain. This has been ongoing for more than 1 year. He has tried braces. He has not had any anti-inflammatories or injections. He has tried tramadol. The pain has significantly worsened in the last 2 months. The last injection worked for longer than 3 months and he would like another one today Pain Pain level (0-10): 0 Pain duration: WITH CERTAIN MOVEMENTS Pain location: inside (medial) Associated signs & symptoms: weakness Ambulatory data Ambulatory device: none Treatments Improvement with previous injections: No Improvement with PT: No Improvement with NSAIDS: no Review of Systems Review of Systems: All systems negative unless otherwise noted in HPI.
[2025-02-26 08:06] VITALS: BP 154/79; PULSE 70; RESP 18; TEMP 36.5; O2SAT 96; BMI 24.7
== END 2025-02-26 08:29 | disposition home or self-care (01) ==
LOC: HODSRG 07:53
PROVIDERS: PCP Nurse Practitioner Family; Referring Provider Nurse Practitioner Family; Supervising Provider Orthopaedic Surgery Adult Reconstructive Orthopaedic Surgery; Visit Provider Orthopaedic Surgery Adult Reconstructive Orthopaedic Surgery
DX: M17.12 Unilateral primary osteoarthritis, left knee (principal); M25.562 Pain in left knee; I10 Essential (primary) hypertension
CPT/HCPCS: 20610; 99213; J1010; J2795; G0463